=== PATIENT | male | born 1950 | race Caucasian/White ===

== ENCOUNTER 2017-06-16 20:42 | Inpatient (IN) | payer OTHER ==
[~2017-06-16] VITALS: Ht 180.3 cm; Wt 137.0 kg
[2017-06-16 20:49] VITALS: BP 136/65
[2017-06-16] MEDS ORDERED: Sodium Chloride 500ML 500 ML IV ONE (20:57)
[2017-06-16] MEDS ORDERED: Ipratropium 0.02% Inh Soln 2.5ml UD HHN ONE (21:00)
[2017-06-16] MEDS ORDERED: Albuterol ud Inhalation HHN ONE (21:00)
[2017-06-16] MEDS ORDERED: Promethazine/Codeine 5ml UD ORAL ONE (21:30)
[2017-06-16 21:53] LABS: BASOPHILS % (AUTO) 0.8 % (0.0-2.0); EOSINOPHILS % (AUTO) 0.6 % (0.0-3.0); LYMPHOCYTES % (AUTO) 11.6 % (20.0-45.0); MEAN CORPUSCULAR HEMOGLOBIN 31.4 PG (27.0-31.0); MEAN CORPUSCULAR HGB CONC 31.9 G/DL (32.0-36.0); MEAN CORPUSCULAR VOLUME 98 FL (80-99); MEAN PLATELET VOLUME 5.4 FL (6.5-10.1); PLATELET COUNT 170 K/UL (150-450); RED BLOOD COUNT 4.42 M/UL (4.70-6.10); RED CELL DISTRIBUTION WIDTH 11.5 % (11.6-14.8); WHITE BLOOD COUNT 9.2 K/UL (4.8-10.8)
[2017-06-16 21:58] LABS: APPEARANCE,URINE CLEAR; KETONES,URINE 1+ (NEGATIVE); LEUKOCYTE ESTERASE ,URINE 1+ (NEGATIVE); NITRITE,URINE NEGATIVE (NEGATIVE); PH,URINE 5 (4.5-8.0); PROTEIN,URINE 2+ (NEGATIVE); UROBILINOGEN,URINE 1 MG/DL (0.0-1.0)
[2017-06-16 22:03] LABS: BACTERIA,URINE FEW /HPF; RBC,URINE 0-2 /HPF (0 - 0); SQUAMOUS EPITHELIAL CELL,UR OCCASIONAL /LPF (NONE/OCC); WBC,URINE 0-2 /HPF (0 - 0)
[2017-06-16 22:05] LABS: ANION GAP 10 mmol/L (5-15); CALCIUM 8.5 MG/DL (8.5-10.1); CARBON DIOXIDE 23 MMOL/L (21-32); CHLORIDE 103 MMOL/L (98-107); CREATININE 1.2 MG/DL (0.55-1.30); GLOMERULAR FILTRATION RATE > 60 mL/min (>60); POTASSIUM 4.6 MMOL/L (3.5-5.1); SODIUM 136 MMOL/L (136-145)
[2017-06-16 22:20] LABS: ALANINE AMINOTRANSFERASE 45 U/L (12-78); ALBUMIN/GLOBULIN RATIO 0.9 (1.0-2.7); ASPARTATE AMINO TRANSFERASE 38 U/L (15-37); CKMB 3.8 NG/ML (0.0-3.6); TOTAL PROTEIN 6.1 G/DL (6.4-8.2)
[2017-06-16 22:49] VITALS: BP 125/71
--- NOTE | 2017-06-16 23:40 | Emergency Room Report ---
History of Present Illness General Chief Complaint: Dyspnea/Respdistress Source: Family Member Present Illness HPI 66-year-old male presents ED for shortness of breath. Started approximately 30 minutes ago. Patient presents with shortness of breath, coughing. Also complaining of some chest pain, sharp, 5 at 10, midsternal, nonradiating. States cough is dry. Denies fevers or chills. Denies sick contacts or recent travel. No other aggravating or relieving factors. Denies any other associated symptoms Allergies: Coded Allergies: No Known Allergies (Unverified , 06/16/17) Patient History Past Medical History: DM, HTN Past Surgical History: none Pertinent Family History: none Social History: Denies: smoking, alcohol use, drug use Immunizations: UTD Reviewed Nursing Documentation: PMH: Agreed, PSxH: Agreed Nursing Documentation-PMH Past Medical History: No History, Except For Hx Hypertension: Yes Hx Diabetes: Yes Review of Systems All Other Systems: negative except mentioned in HPI Physical Exam Vital Signs Date Time Temp Pulse Resp B/P (MAP) Pulse Ox O2 Delivery O2 Flow Rate FiO2 06/16/17 20:45 99.0 110 22 136/65 99 Room Air 06/16/17 21:08 2.0 24 Sp02 EP Interpretation: reviewed, normal General Appearance: no apparent distress, alert, GCS 15, non-toxic Head: normocephalic, atraumatic Eyes: bilateral eye normal inspection, bilateral eye PERRL ENT: hearing grossly normal, normal pharynx, no angioedema, normal voice Neck: full range of motion, supple/symm/no masses Respiratory: chest non-tender, decreased breath sounds, crackles, speaking full sentences Cardiovascular #1: regular rate, rhythm, no edema Cardiovascular #2: 2+ carotid (R), 2+ carotid (L), 2+ radial (R), 2+ radial (L) , 2+ dorsalis pedis (R), 2+ dorsalis pedis (L) Gastrointestinal: normal bowel sounds, non tender, soft, non-distended, no guarding, no rebound Rectal: deferred Genitourinary: normal inspection, no CVA tenderness Musculoskeletal: back normal, gait/station normal, normal range of motion, non- tender Neurologic: alert, oriented x3, responsive, motor strength/tone normal, sensory intact, speech normal Psychiatric: judgement/insight normal, memory normal, mood/affect normal, no suicidal/homicidal ideation Reflexes: 3+ bicep (R), 3+ bicep (L), 3+ tricep (R), 3+ tricep (L), 3+ knee (R) , 3+ knee (L) Skin: normal color, no rash, warm/dry, well hydrated Lymphatic: no adenopathy Medical Decision Making Diagnostic Impression: Primary Impression: Respiratory distress Additional Impression: CHF (congestive heart failure) Qualified Codes: I50.9 - Heart failure, unspecified ER Course Hospital Course 66-year-old male presents ED complaining of shortness of breath, cough Differential diagnoses include: OH/unstable angina, contusion, muscle strain, PTX, rib fracture Clinical course Patient placed on stretcher. on library monitor. After initial history and physical I ordered labs, EKG, chest x-ray, nebs labs reviewed- no leukocytosis, hemoglobin/hematocrit stable, electrolytes ok, troponins negative, BNP elevated, flu negative EKG - sinus tachycardia, no acute ischemic changes interpreted by me Chest x-ray- cardiomegaly. bilateral effusion asa given. abx given. Case discussed with Dr. Merritt and he agreed to accept the patient to his service for further care and support I. I feel this is a highly complex case requiring extensive working including EKG/Rhythm strip, Xray/CT/US, Blood/urine lab work, repeat exams while in ED, and administration of strong opiates/narcotics for pain control, admission to hospital or close patient follow up. Diagnosis - CHF exacerbation, respiratory distress admitted to telemetry in serious condition Labs Test 06/16/17 21:25 White Blood Count 9.2 K/UL (4.8-10.8) Red Blood Count 4.42 M/UL (4.70-6.10) Hemoglobin 13.9 G/DL (14.2-18.0) Hematocrit 43.4 % (42.0-52.0) Mean Corpuscular Volume 98 FL (80-99) Mean Corpuscular Hemoglobin 31.4 PG (27.0-31.0) Mean Corpuscular Hemoglobin Concent 31.9 G/DL (32.0-36.0) Red Cell Distribution Width 11.5 % (11.6-14.8) Platelet Count 170 K/UL (150-450) Mean Platelet Volume 5.4 FL (6.5-10.1) Neutrophils (%) (Auto) 81.0 % (45.0-75.0) Lymphocytes (%) (Auto) 11.6 % (20.0-45.0) Monocytes (%) (Auto) 6.0 % (1.0-10.0) Eosinophils (%) (Auto) 0.6 % (0.0-3.0) Basophils (%) (Auto) 0.8 % (0.0-2.0) Urine Color Yellow Urine Appearance Clear Urine pH 5 (4.5-8.0) Urine Specific [place] 1.025 (1.005-1.035) Urine Protein 2+ (NEGATIVE) Urine Glucose (UA) 4+ (NEGATIVE) Urine Ketones 1+ (NEGATIVE) Urine Occult Blood 1+ (NEGATIVE) Urine Nitrite Negative (NEGATIVE) Urine Bilirubin Negative (NEGATIVE) Urine Urobilinogen 1 MG/DL (0.0-1.0) Urine Leukocyte Esterase 1+ (NEGATIVE) Urine RBC 0-2 /HPF (0 - 0) Urine WBC 0-2 /HPF (0 - 0) Urine Squamous Epithelial Cells Occasional /LPF Urine Bacteria Few /HPF (NONE) Sodium Level 136 MMOL/L (136-145) Potassium Level 4.6 MMOL/L (3.5-5.1) Chloride Level 103 MMOL/L (98-107) Carbon Dioxide Level 23 MMOL/L (21-32) Anion Gap 10 mmol/L (5-15) Blood Urea Nitrogen 16 mg/dL (7-18) Creatinine 1.2 MG/DL (0.55-1.30) Estimat Glomerular Filtration Rate > 60 mL/min (>60) Glucose Level 254 MG/DL (74-106) Calcium Level 8.5 MG/DL (8.5-10.1) Total Bilirubin 0.3 MG/DL (0.2-1.0) Aspartate Amino Transf (AST/SGOT) 38 U/L (15-37) Alanine Aminotransferase (ALT/SGPT) 45 U/L (12-78) Alkaline Phosphatase 51 U/L (46-116) Total Creatine Kinase 144 U/L (26-308) Creatine Kinase MB 3.8 NG/ML (0.0-3.6) Creatine Kinase MB Relative Index 2.6 Troponin I 0.000 ng/mL (0.000-0.056) Pro-B-Type Natriuretic Peptide 243 pg/mL (0-125) Total Protein 6.1 G/DL (6.4-8.2) Albumin 2.9 G/DL (3.4-5.0) Globulin 3.2 g/dL Albumin/Globulin Ratio 0.9 (1.0-2.7) EKG Diagnostic Results Rate: tachycardiac Rhythm: NSR ST Segments: no acute changes ASA given to the pt in ED: Yes Rhythm Strip Diag. Results EP Interpretation: yes Rhythm: NSR, no PVC's, no ectopy Chest X-Ray Diagnostic Results Chest X-Ray Diagnostic Results : Chest X-Ray Ordered: Yes # of Views/Limited/Complete: 1 View EP Interpretation: Yes Interpretation: no consolidation, no pneumothorax, no acute cardiopulmonary disease, other - bilateral effusion. cardiomegaly Impression: Other - chf Electronically Signed by: Electronically signed by Baljeet Eric MD Last Vital Signs Date Time Temp Pulse Resp B/P (MAP) Pulse Ox O2 Delivery O2 Flow Rate FiO2 06/16/17 21:23 113 26 95 Nasal Cannula 2.0 28 06/16/17 20:49 99.0 136/65 Status: improved Disposition: ADMITTED INPATIENT Condition: Serious Referrals: [facility],REFERRING (PCP) BALJEET ERIC M.D. Jun 16, 2017 23:40
[2017-06-17] VITALS (7 sets, daily range): BP systolic 105–133; BP diastolic 57–79
[2017-06-17] MEDS ORDERED: HUMALOG100 UNIT/4 SUBQ (00:38)
[2017-06-17] MEDS ORDERED: LANTUS SOL100 UNIT/1 SUBQ (00:38)
[2017-06-17] MEDS ORDERED: ASPIRIN-LOW81 MG ORAL (00:38)
[2017-06-17] MEDS ORDERED: LOSARTAN POTASS50 MG ORAL (00:38)
[2017-06-17] MEDS ORDERED: DOXAZOSIN MESYLA2 MG ORAL (00:38)
[2017-06-17] MEDS ORDERED: METFORMIN HCL500 M1 ORAL (00:38)
[2017-06-17] MEDS ORDERED: NORVASC2.5 MG ORAL (00:38)
[2017-06-17] MEDS ORDERED: METOPROLOL SUCC50 MG ORAL (00:38)
[2017-06-17] MEDS ORDERED: ATORVASTATIN CA10 MG ORAL (00:38)
[2017-06-17] MEDS ORDERED: Albuterol/Ipratropium 3ml neb HHN PRN (03:15)
[2017-06-17] MEDS: NovoLOG Insulin Flexpen SUBQ SCH ×7 (08:00→21:24)
[2017-06-17] MEDS ORDERED: Metoprolol Succinate XL 25mg tab ORAL SCH (09:00)
[2017-06-17] MEDS ORDERED: Metoprolol Succinate XL 50mg tab ORAL SCH (09:00)
[2017-06-17] MEDS ORDERED: Losartan 50mg tab ORAL SCH (09:00)
[2017-06-17] MEDS ORDERED: Enoxaparin 40mg Inj SUBQ SCH (09:00)
[2017-06-17] MEDS ORDERED: Losartan 25mg tab ORAL SCH (09:00)
[2017-06-17] MEDS: Aspirin EC 81mg tab ORAL SCH (09:03)
[2017-06-17] MEDS: Doxazosin 4mg tab ORAL SCH (09:04)
[2017-06-17] MEDS: metFORMIN 500mg tab ORAL SCH ×2 (09:05→17:18)
--- NOTE | 2017-06-17 09:06 | History & Physical ---
History and Physical History & Physicial seen and examined. Dict completed Matilde Merritt MD Jun 17, 2017 09:06
--- NOTE | 2017-06-17 09:40 | Diagnostic Imaging Report ---
Indication: SOB Technique: XRAY CHEST 1 V Comparison: None. Findings: The heart is enlarged. The lungs are clear. No pleural fluid. The bones are unremarkable. Impression: Cardiomegaly. Otherwise normal.
[2017-06-17] MEDS ORDERED: Tubing IV Secondary IV ONE (16:20)
[2017-06-17] MEDS ORDERED: NS 500ML ONE (16:20)
[2017-06-17] MEDS: Vancomycin 1500mg IVPB SCH (17:18)
--- NOTE | 2017-06-17 19:31 | History and Physical Report ---
DATE OF ADMISSION: 06/17/2017 SOURCE OF INFORMATION: The patient and EMR. HISTORY OF PRESENT ILLNESS: The patient is a pleasant 66-year-old [place] male. The patient is complaining of shortness of breath for at least half an hour before coming to the emergency room. Positive for the chest pain. The pain reported in the precordial area with radiation to the neck. Denies any fever or chills. Denies any cough. Denies any abnormal bleeding. REVIEW OF SYSTEMS: All 12 elements of review of systems are reviewed. Pertinent positive and negatives are reviewed as above. ALLERGIES: NKDA. PAST MEDICAL HISTORY: Diabetes and hypertension. PAST SURGICAL HISTORY: Denies. FAMILY HISTORY: Denies. SOCIAL HISTORY: The patient denies history of illicit drug abuse, smoking, or alcohol abuse. MEDICATIONS: Current hospital medications including, but not limited to Tylenol, aspirin 81, Lipitor 10 mg daily, DuoNeb, Lasix 40 mg IV daily, sliding scale insulin, losartan 25 mg daily, and metformin 500 mg b.i.d. PHYSICAL EXAMINATION: VITAL SIGNS: Blood pressure 130/60, temperature 98.2, pulse oximetry 98% on room air, pulse rate 100-120, and respiratory rate 18-20. HEAD AND NECK: Atraumatic and normocephalic. CHEST: Positive for bronchial breathing sounds in the bases of the lungs. Negative for wheezing. HEART: S1 and S2. Regular rate and rhythm. ABDOMEN: Obese. Limited evaluation. NEUROLOGIC: The patient is awake, alert and oriented x3. MUSCULOSKELETAL: Positive for 2+ pitting edema in both ankles. No gross focal motor deficit. LABORATORY AND DIAGNOSTIC DATA: Labs dated 06/16/2017 shows WBC 9.2, hemoglobin 13.9, and platelet of 170. Sodium 136, potassium 4.6, BUN 16, creatinine 1.0. AST 38. BNP 243. Albumin 2.9. Urinalysis shows 2+ proteinuria. Imaging is still pending. ASSESSMENT: 1. Chest pain possibility of acute coronary syndrome cannot be excluded in this patient with moderate to high risk pretest probability. 2. Exertional shortness of breath. 3. Anemia. 4. Diabetes type 2. 5. Malnourishment. 6. Abnormal LFTs. 7. Gastrointestinal and deep vein thrombosis prophylaxis. PLAN OF CARE: I agree with telemetry admission. Continue with home medications. Cardiology, Dr. Javier has been consulted. Matilde Merritt M.D. DR: JASWANT JOB#: [id number] CC:
[2017-06-17 20:28] LABS: ANION GAP 8 mmol/L (5-15); CALCIUM 8.6 MG/DL (8.5-10.1); CARBON DIOXIDE 26 MMOL/L (21-32); CHLORIDE 101 MMOL/L (98-107); CREATININE 1.3 MG/DL (0.55-1.30); GLOMERULAR FILTRATION RATE 54.9 mL/min (>60); POTASSIUM 4.4 MMOL/L (3.5-5.1); SODIUM 135 MMOL/L (136-145)
[2017-06-17] MEDS: Losartan 25mg tab ORAL SCH (21:13)
[2017-06-17] MEDS: Levemir Flexpen SUBQ SCH (21:21)
[2017-06-17] MEDS: Enoxaparin 100mg Inj SUBQ SCH (23:11)
[2017-06-18 00:35] VITALS: BP 109/52
[2017-06-18 04:22] VITALS: BP 121/70
[2017-06-18] MEDS: Vancomycin 1500mg IVPB SCH ×2 (04:33→15:48)
[2017-06-18] MEDS: NovoLOG Insulin Flexpen SUBQ SCH ×7 (07:00→22:44)
[2017-06-18 08:49] VITALS: BP 127/73
[2017-06-18] MEDS: metFORMIN 500mg tab ORAL SCH ×2 (09:32→17:29)
[2017-06-18] MEDS: Metoprolol Succinate XL 25mg tab ORAL SCH (09:33)
[2017-06-18] MEDS: Aspirin EC 81mg tab ORAL SCH (09:33)
[2017-06-18] MEDS: Losartan 25mg tab ORAL SCH ×2 (09:34→22:41)
[2017-06-18] MEDS: Doxazosin 4mg tab ORAL SCH (09:34)
[2017-06-18] MEDS: Enoxaparin 100mg Inj SUBQ SCH (09:36)
--- NOTE | 2017-06-18 10:16 | Cardiology Report ---
APPROVED REPORT EXAM: Two-dimensional and M-mode echocardiogram with Doppler and color Doppler. INDICATION Congestive Heart Failure M-Mode DIMENSIONS IVSd1.7 (0.7-1.1cm)Left Atrium (MM)3.5 (1.6-4.0cm) LVDd3.5 (3.5-5.6cm)Aortic Root3.9 (2.0-3.7cm) PWd1.7 (0.7-1.1cm)Aortic Cusp Exc.2.0 (1.5-2.0cm) IVSs2.0 cm LVDs2.5 (2.5-4.0cm) PWs1.6 cm Technically difficult study due to poor acoustical windows. Normal left ventricular chamber size, systolic function and wall motion to extent visualized. Left ventricular ejection fraction estimated to be 55-60 %. Mild left ventricular hypertrophy. No evidence of pericardial effusion. All other cardiac chamber sizes are within normal limits. Focal aortic valve sclerosis with adequate cusp excursion. Thickened mitral valve leaflets with normal excursion. Mitral annulus and aortic root calcification. Pulmonic valve not well visualized. Normal tricuspid valve structure. Subcostal views are not obtainable. A color flow and spectral Doppler study was performed and revealed: No aortic regurgitation. Trace mitral regurgitation. Mitral diastolic velocities suggest reduced left ventricular relaxation c/w mild LV diastolic dysfunction (Grade I ). Trace tricuspid regurgitation. Tricuspid systolic velocities suggests peak right ventricular systolic pressure of 18 mmHg No Pulmonic regurgitation present.
--- NOTE | 2017-06-18 10:18 | Consultation ---
LUZ MARINA BRISENO M.D. Jun 18, 2017 10:18
--- NOTE | 2017-06-18 10:55 | General Progress Note ---
Assessment/Plan Status: stable Assessment/Plan 1. Chest pain possibility of acute coronary syndrome cannot be excluded in this patient with moderate to high risk pretest probability. 2. Exertional shortness of breath. 3. Anemia. 4. Diabetes type 2. 5. Malnourishment. 6. Abnormal LFTs. 7. Gastrointestinal and deep vein thrombosis prophylaxis. 8. Afib: New reported incidence Start Lovenox ok to empirical antibiotic regiment Cardiology Dr Javier is consulted possible dc tomorrow Subjective ROS Limited/Unobtainable: No Allergies: Coded Allergies: No Known Allergies (Unverified , 06/16/17) Objective Last 24 Hour Vital Signs Date Time Temp Pulse Resp B/P (MAP) Pulse Ox O2 Delivery O2 Flow Rate FiO2 06/18/17 09:34 127/73 06/18/17 09:33 88 127/73 06/18/17 08:49 97.2 88 18 127/73 93 06/18/17 04:22 98.8 88 18 121/70 93 Nasal Cannula 06/18/17 04:00 76 06/18/17 00:35 96.4 84 18 109/52 93 Nasal Cannula 06/18/17 00:00 79 06/17/17 21:13 127/79 06/17/17 20:28 97.7 85 20 127/79 95 Nasal Cannula 06/17/17 20:00 85 06/17/17 19:00 94 Nasal Cannula 2.0 28 06/17/17 19:00 Nasal Cannula 2.0 28 06/17/17 16:00 97.6 71 20 125/69 94 06/17/17 16:00 103 06/17/17 12:00 97.5 91 20 105/57 95 06/17/17 12:00 88 Intake and Output 06/18/17 06/19/17 19:00 07:00 Intake Total 120 ml Balance 120 ml Intake Oral 120 ml # Voids 1 Laboratory Tests 06/17/17 19:10: Sodium Level 135L, Potassium Level 4.4, Chloride Level 101, Carbon Dioxide Level 26, Anion Gap 8, Blood Urea Nitrogen 26H, Creatinine 1.3, Estimat Glomerular Filtration Rate 54.9, Glucose Level 308H, Calcium Level 8.6 06/17/17 19:30: Troponin I 0.000 06/18/17 06:50: Troponin I < 0.017, Erythrocyte Sedimentation Rate 25H, C-Reactive Protein, Quantitative 17.3H Height (Feet): 5 Height (Inches): 11.00 Weight (Pounds): 310 General Appearance: no apparent distress EENT: PERRL/EOMI Neck: supple Cardiovascular: normal rate Respiratory/Chest: lungs clear Abdomen: soft Extremities: non-tender Neurologic: sports equipment racker II-XII grossly normal Matilde Merritt MD Jun 18, 2017 10:54
[2017-06-18 11:47] VITALS: BP 111/67
--- NOTE | 2017-06-18 13:12 | Cardiology Progress Note ---
Assessment/Plan Assessment/Plan The patient is seen and examined, full consult note will be dictated soon. Objective Last 24 Hour Vital Signs Date Time Temp Pulse Resp B/P (MAP) Pulse Ox O2 Delivery O2 Flow Rate FiO2 06/18/17 11:47 97.2 96 20 111/67 95 06/18/17 09:34 127/73 06/18/17 09:33 88 127/73 06/18/17 08:49 97.2 88 18 127/73 93 06/18/17 04:22 98.8 88 18 121/70 93 Nasal Cannula 06/18/17 04:00 76 06/18/17 00:35 96.4 84 18 109/52 93 Nasal Cannula 06/18/17 00:00 79 06/17/17 21:13 127/79 06/17/17 20:28 97.7 85 20 127/79 95 Nasal Cannula 06/17/17 20:00 85 06/17/17 19:00 94 Nasal Cannula 2.0 28 06/17/17 19:00 Nasal Cannula 2.0 28 06/17/17 16:00 97.6 71 20 125/69 94 06/17/17 16:00 103 Intake and Output 06/18/17 06/19/17 19:00 07:00 Intake Total 120 ml Balance 120 ml Intake Oral 120 ml # Voids 1 Laboratory Tests Test 06/17/17 19:10 06/17/17 19:30 06/18/17 06:50 06/18/17 11:50 Sodium Level 135 MMOL/L (136-145) L Potassium Level 4.4 MMOL/L (3.5-5.1) Chloride Level 101 MMOL/L (98-107) Carbon Dioxide Level 26 MMOL/L (21-32) Anion Gap 8 mmol/L (5-15) Blood Urea Nitrogen 26 mg/dL (7-18) H Creatinine 1.3 MG/DL (0.55-1.30) Estimat Glomerular Filtration Rate 54.9 mL/min (>60) Glucose Level 308 MG/DL (74-106) H Calcium Level 8.6 MG/DL (8.5-10.1) Troponin I 0.000 ng/mL (0.000-0.056) < 0.017 ng/mL (0.000-0.056) 0.000 ng/mL (0.000-0.056) Erythrocyte Sedimentation Rate 25 MM/HR (0-20) H C-Reactive Protein, Quantitative 17.3 mg/dL (0.00-0.90) H Microbiology Date/Time Source Procedure Growth Status 06/16/17 21:40 Blood Blood Culture - Preliminary Streptococcus Species Resulted 06/16/17 21:25 Blood Blood Culture - Preliminary Streptococcus Species Resulted 06/16/17 21:25 Nasal Nares Influenza Types A,B Antigen ([facility]) - Final Complete NAYA MANZO Jun 18, 2017 13:12
--- NOTE | 2017-06-18 14:02 | Consultation ---
Consult Note Consult Note [facility] # [id number] LUZ MARINA BRISENO M.D. Jun 18, 2017 14:01
[2017-06-18] MEDS: Xarelto 10mg tab ORAL SCH (14:08)
[2017-06-18 15:40] VITALS: BP 129/67
[2017-06-18 15:56] LABS: ANION GAP 5 mmol/L (5-15); CALCIUM 8.4 MG/DL (8.5-10.1); CARBON DIOXIDE 32 MMOL/L (21-32); CHLORIDE 101 MMOL/L (98-107); CREATININE 1.3 MG/DL (0.55-1.30); GLOMERULAR FILTRATION RATE 54.9 mL/min (>60); POTASSIUM 4.7 MMOL/L (3.5-5.1); SODIUM 138 MMOL/L (136-145)
--- NOTE | 2017-06-18 18:56 | Cardiology Report ---
APPROVED REPORT EXAM: Two-dimensional and M-mode echocardiogram with Doppler and color Doppler. INDICATION Shortness of breath/ chest pain M-Mode DIMENSIONS IVSd2.2 (0.7-1.1cm)Left Atrium (MM)5.5 (1.6-4.0cm) LVDd5.3 (3.5-5.6cm)Aortic Root3.0 (2.0-3.7cm) PWd1.0 (0.7-1.1cm)Aortic Cusp Exc.1.5 (1.5-2.0cm) LVDs3.4 (2.5-4.0cm) PWs1.8 cm Other Information position. Normal left ventricular chamber size. Mild hypokinesis of posterior wall, otherwise all other segments seem to have normal wall motion. Left ventricular ejection fraction estimated to be 50%. Study quality precludes accurate assessment of regional wall motion. Moderate left ventricular hypertrophy. No evidence of pericardial effusion. Left atrial size at upper limits of normal. Right cardiac chamber sizes are within normal limits. Focal aortic valve sclerosis with adequate cusp excursion. Thickened mitral valve leaflets with normal excursion. Mitral annulus and aortic root calcification. Pulmonic valve not well visualized. Normal tricuspid valve structure. Subcostal views were not obtainable. A color flow and spectral Doppler study was performed and revealed: Trace aortic insufficiency. Mild mitral regurgitation. Cannot determine left ventricular diastolic function by mitral diastolic velocities due to possible atrial fibrillation. Trace tricuspid regurgitation. Tricuspid systolic velocities suggests peak right ventricular systolic pressure of 15 mmHg. No pulmonic regurgitation present.
[2017-06-18 20:00] VITALS: BP 127/67
--- NOTE | 2017-06-18 21:45 | Consultation ---
DATE OF CONSULTATION: 06/18/2017 CARDIOLOGY CONSULTATION CONSULTING PHYSICIAN: Silvio Javier M.D. REFERRING PHYSICIAN: Matilde Merritt M.D. REASON FOR CONSULTATION: Management of shortness of breath. HISTORY OF PRESENT ILLNESS: The patient is a very pleasant, 66-year-old, Hungarian-speaking gentleman, who presents to the hospital with shortness of breath that was started approximately 30 minutes prior to arrival to the hospital. He had associated coughing and some pleuritic chest pain. On initial arrival to the hospital, his blood pressure was 136/65. He had low-grade fever with temperature 99.0 degrees Fahrenheit and heart rate was 110. A 12-lead electrocardiogram showed atrial fibrillation with rapid ventricular response. The patient had a chest x-ray, which showed presence of cardiomegaly, but no evidence of pulmonary edema. His risk factors are coronary artery disease including hypertension and diabetes mellitus. His first troponin-I level was negative. The patient was admitted to telemetry for further evaluation and management. PAST MEDICAL HISTORY: Diabetes mellitus, hypertension, and morbid obesity. PAST SURGICAL HISTORY: None. MEDICATIONS: List of medication includes, 1. Aspirin 81 mg p.o. daily. 2. Norvasc 2.5 mg p.o. daily. 3. Lipitor 10 mg p.o. nightly. 4. Doxazosin 2 mg p.o. daily. 5. Lantus insulin 50 units subcutaneous at bedtime. 6. Humalog insulin 18 units subcutaneous t.i.d. 7. Losartan 50 mg p.o. twice daily. 8. Metformin 500 mg twice daily. 9. Metoprolol 50 mg p.o. daily. ALLERGIES: No known drug allergies. SOCIAL HISTORY: Denies any tobacco, alcohol, or illicit drug use. REVIEW OF SYSTEMS: A 12-system review done essentially negative except what mentioned in the history of present illness. PHYSICAL EXAMINATION: VITAL SIGNS: Blood pressure at the time of arrival to the hospital was 106/65 mmHg, pulse of 110, respirations of 22, temperature 99.0 degrees Fahrenheit, and O2 saturation of 99% on room air. GENERAL: The patient is morbidly obese, 66-year-old gentleman, in no apparent respiratory distress. Awake and alert x4. HEENT: Atraumatic and normocephalic. Anicteric. Pupils are equal, round, and reactive to light and accommodation. Extraocular muscles intact. NECK: JVP is less than 5 cm. No carotid bruit. Carotid upstrokes 2+ bilaterally. CVS: Normal S1 and S2. Irregularly irregular rhythm. Tachycardic. No murmurs, gallops, or rubs. LUNGS: Clear to auscultation bilaterally. ABDOMEN: Soft, nontender, and nondistended. No hepatosplenomegaly. Positive bowel sounds. EXTREMITIES: There is 1 to 2+ bilateral lower extremity edema, in particular around the ankles. LABORATORY FINDINGS: Sodium is 136, potassium is 4.6, chloride 103, bicarbonate 23, BUN of 16, creatinine 1.2, glucose is 254, and calcium is 8.5. Troponin-I x4 negative. ProBNP was 243. A 12-lead electrocardiogram significant for atrial fibrillation, heart rate of [address] and T-wave abnormalities. Chest x-ray shows cardiomegaly with no pulmonary edema. ASSESSMENT AND PLAN: The patient is a very unfortunate, 66-year-old gentleman, seen in Cardiology consultation at the request of Dr. Merritt. 1. Most likely permanent atrial fibrillation that is rate controlled with metoprolol use as an outpatient. The patient's CHADS-VASc score at least 3 given diabetes mellitus, hypertension, and age of 66. He requires to be started on oral anticoagulant therapy. His Lovenox will be replaced by Xarelto once daily. His creatinine is 1.2, requiring 20 mg Xarelto once daily. 2. Dyspnea could be due to deconditioning, might be a transient mild heart failure. Slight elevation of BNP, most likely due to atrial fibrillation, although the patient with atrial fibrillation tends to have more prevalence of heart failure. This patient does not show any evidence of systolic and diastolic heart failure. A 2D echocardiography shows left ventricular ejection fraction of about 55% to 60%. Diastolic data is not compatible with elevated intracardiac filling pressures. I would switch the furosemide to 20 mg oral daily for lower extremity edema to prevent renal dysfunction. 3. Morbid obesity. 4. Multiple risk factors for coronary artery disease. A 12-lead electrocardiogram does not show any ischemic changes. Chest pain on arrival to the hospital is not ischemic in origin. The patient may benefit from outpatient stress test if the chest pain is recurrent, currently chest pain free. Active myocardial infarction is ruled out. I would like to thank, Dr. Merritt, for the courtesy of this consultation. Silvio Javier M.D. DR: Monica JOB#: [id number] CC:
[2017-06-18] MEDS: Levemir Flexpen SUBQ SCH (22:47)
[2017-06-19] VITALS (7 sets, daily range): BP systolic 99–147; BP diastolic 50–86
--- NOTE | 2017-06-19 04:00 | Consultation ---
DATE OF CONSULTATION: 06/18/2017 INFECTIOUS DISEASE CONSULTATION CONSULTING PHYSICIAN: Brandon Powers M.D. REQUESTING PHYSICIAN: Matilde Merritt M.D. REASON FOR CONSULTATION: Evaluation of the patient for bacteremia. HISTORY OF PRESENT ILLNESS: The patient is a 66-year-old male with multiple medical problems as listed below, who was admitted to this medical center for shortness of breath. The patient's blood culture is growing gram positive cocci, has been started on IV vancomycin. Infectious Disease consultation has been requested for further evaluation of the patient and antibiotic management. PAST MEDICAL HISTORY: 1. Diabetes. 2. Hypertension. 3. Hyperlipidemia. PAST SURGICAL HISTORY: None. MEDICATIONS: IV vancomycin. ALLERGIES: No known drug allergies. SOCIAL HISTORY: No history of alcohol or drug abuse. FAMILY HISTORY: Not contributing. REVIEW OF SYSTEMS: HEENT: No recent change in vision or hearing. No history of chills. PULMONARY: The patient has shortness of breath. No significant cough. CARDIOVASCULAR: No chest pain or palpitation. GASTROINTESTINAL/ABDOMEN: No nausea or vomiting. GENITOURINARY: No dysuria. PHYSICAL EXAMINATION: VITAL SIGNS: Temperature 97, blood pressure 111/57, pulse 86, and respiratory rate 18. HEENT: No pale conjunctivae. No icterus. NECK: No lymphadenopathy. CHEST: Mild crackles at bases of both lungs. HEART: S1 and S2. ABDOMEN: Soft and obese. EXTREMITIES: No cyanosis. NEUROLOGIC: Awake and alert. LABORATORY DATA: White blood cells 9, hemoglobin 13, and platelets 170. UA unremarkable. BUN 26 and creatinine 1.3. Liver function tests unremarkable. Blood culture is growing strep 2/2. Echo, no aortic regurgitation, trace mitral regurgitation. Chest x-ray, cardiomegaly. ASSESSMENT: 1. The patient is a 66-year-old male with two sets of blood culture positive for streptococcus, source is unknown, rule out endocarditis, also this could be a contaminant. 2. Shortness of breath due to congestive heart failure. 3. Afebrile. 4. Normal white blood cells. PLAN: 1. We will continue the patient on IV vancomycin. 2. Monitor CBC. 3. Monitor BMP. 4. Monitor repeat blood cultures. 5. Monitor vital signs. 6. We will follow Cardiology recommendations. 7. Based on the patient's clinical course and labs, we will do further recommendations. Thank you, Dr. Merritt, for allowing me to participate in the care of this patient. I will follow the patient with you during this hospitalization. Brandon Powers M.D. DR: DELVIN JOB#: [id number] CC:
[2017-06-19] MEDS: Vancomycin 1250mg/D5W 250ml IVPB SCH ×2 (05:00→12:51)
[2017-06-19] MEDS: NovoLOG Insulin Flexpen SUBQ SCH ×7 (06:32→21:43)
[2017-06-19] MEDS: Xarelto 10mg tab ORAL SCH (09:05)
[2017-06-19] MEDS: metFORMIN 500mg tab ORAL SCH ×2 (09:06→17:31)
[2017-06-19] MEDS: Doxazosin 4mg tab ORAL SCH (09:07)
[2017-06-19] MEDS: Losartan 25mg tab ORAL SCH ×2 (09:09→21:40)
[2017-06-19] MEDS: Metoprolol Succinate XL 25mg tab ORAL SCH (09:09)
[2017-06-19] MEDS: Aspirin EC 81mg tab ORAL SCH (09:12)
[2017-06-19] MEDS ORDERED: FUROSEMIDE20 M1 ORAL (12:05)
[2017-06-19] MEDS ORDERED: XARELTO10 MG ORAL (12:06)
--- NOTE | 2017-06-19 14:47 | Infectious Diseases Prog Note ---
Assessment/Plan Assessment/Plan ASSESSMENT: The patient is a 66-year-old male with +ve blood culture: streptococcus Grp B ? source is unknown, transient bacteremia vs contaminant TTE : neg for SBE Shortness of breath due to congestive heart failure. Febrile. Normal white blood cells Diabetes. Hypertension. Hyperlipidemia PLAN: on IV vancomycin d# 4 , change to Ampicillin IV, upon DC will change to Amoxilxllin x 10 d repeat blood Cx in 2 wks Monitor CBC Monitor BMP. Monitor repeat blood cultures. Monitor vital signs Cardiology following need to monitor repeat blood Cx , possible DC in AM ( [facility] PCP ) Subjective Constitutional: Denies: no symptoms, fever, chills, fatigue, anorexia, drenching sweats, other Allergies: Coded Allergies: No Known Allergies (Unverified , 06/16/17) Objective Vital Signs Last 24 Hour Vital Signs Date Time Temp Pulse Resp B/P (MAP) Pulse Ox O2 Delivery O2 Flow Rate FiO2 06/19/17 11:40 96.8 83 20 122/66 95 06/19/17 09:46 Room Air 06/19/17 09:46 97 Room Air 06/19/17 09:09 81 129/64 06/19/17 09:09 129/64 06/19/17 08:35 96.4 91 20 129/64 93 06/19/17 08:00 76 06/19/17 04:00 84 06/19/17 04:00 97.7 65 20 99/50 94 Room Air 06/19/17 00:00 97.7 78 20 123/84 95 Room Air 06/19/17 00:00 85 06/18/17 22:41 127/67 06/18/17 20:00 86 06/18/17 20:00 97.3 62 20 127/67 93 Room Air 06/18/17 18:51 92 Room Air 21 06/18/17 18:51 Room Air 21 06/18/17 18:51 80 18 Room Air 21 06/18/17 16:35 Room Air 21 06/18/17 16:35 99 Nasal Cannula 06/18/17 16:00 78 06/18/17 15:40 97.0 74 20 129/67 95 Height (Feet): 5 Height (Inches): 11.00 Weight (Pounds): 302 HEENT: mucous membranes moist Respiratory/Chest: no respiratory distress Cardiovascular: regularly irregular Abdomen: non distended Microbiology Date/Time Source Procedure Growth Status 06/17/17 19:10 Blood Blood Culture - Preliminary NO GROWTH AFTER 24 HOURS Resulted 06/17/17 19:00 Blood Blood Culture - Preliminary NO GROWTH AFTER 24 HOURS Resulted 06/16/17 21:40 Blood Blood Culture - Final Strep Agalactiae Group B Complete 06/16/17 21:25 Blood Blood Culture - Final Strep Agalactiae Group B Complete 06/16/17 21:25 Nasal Nares Influenza Types A,B Antigen ([facility]) - Final Complete Laboratory Tests Test 06/18/17 14:50 Sodium Level 138 MMOL/L (136-145) Potassium Level 4.7 MMOL/L (3.5-5.1) Chloride Level 101 MMOL/L (98-107) Carbon Dioxide Level 32 MMOL/L (21-32) Anion Gap 5 mmol/L (5-15) Blood Urea Nitrogen 20 mg/dL (7-18) H Creatinine 1.3 MG/DL (0.55-1.30) Estimat Glomerular Filtration Rate 54.9 mL/min (>60) Glucose Level 239 MG/DL (74-106) H Calcium Level 8.4 MG/DL (8.5-10.1) L Vancomycin Level Trough 9.8 ug/mL (5.0-12.0) Current Medications Medications (Trade) Dose Ordered Sig/Jose Route PRN Reason Start Time Stop Time Status Last Admin Dose Admin Acetaminophen (Tylenol) 650 mg Q6H PRN ORAL Mild Pain/Temp > 100.5 06/17/17 03:15 07/17/17 03:14 Albuterol/ Ipratropium (Albuterol/ Ipratropium) 3 ml Q4H PRN HHN Shortness of Breath 06/17/17 03:15 06/22/17 03:14 Aspirin (Ecotrin) 81 mg DAILY ORAL 06/17/17 09:00 07/17/17 08:59 06/19/17 09:12 Atorvastatin Calcium (Lipitor) 10 mg BEDTIME ORAL 06/17/17 21:00 07/17/17 20:59 06/18/17 22:41 Dextrose (Dextrose 50%) STAT PRN IV Hypoglycemia 06/17/17 03:15 07/17/17 03:14 Doxazosin Mesylate (Cardura) 2 mg DAILY ORAL 06/17/17 09:00 07/17/17 08:59 06/19/17 09:07 Furosemide (Lasix) 20 mg DAILY ORAL 06/19/17 09:00 07/19/17 08:59 06/19/17 09:05 Insulin Aspart (NovoLOG) BEFORE MEALS AND HS SUBQ 06/17/17 06:30 07/17/17 06:29 06/19/17 11:44 Insulin Aspart (NovoLOG) 12 units TIAC SUBQ 06/17/17 06:30 07/17/17 06:29 06/19/17 11:45 Insulin Detemir (Levemir) 40 units BEDTIME SUBQ 06/17/17 21:00 07/17/17 20:59 06/18/17 22:47 Losartan Potassium (Cozaar) 25 mg Q12HR ORAL 06/17/17 21:00 07/17/17 20:59 06/19/17 09:09 Metformin HCl (Glucophage) 500 mg TWICE A DAY ORAL 06/17/17 09:00 07/17/17 08:59 06/19/17 09:06 Metoprolol Succinate (Toprol XL) 25 mg DAILY ORAL 06/18/17 09:00 07/18/17 08:59 06/19/17 09:09 Ondansetron HCl (Zofran) 4 mg Q6H PRN IVP Nausea & Vomiting 06/17/17 03:15 07/17/17 03:14 Rivaroxaban (Xarelto) 20 mg DAILY ORAL 06/18/17 14:00 07/18/17 13:59 06/19/17 09:05 Vancomycin HCl (Vanco rx to dose) 1 ea DAILY PRN MISC Per rx protocol 06/17/17 15:00 07/17/17 14:59 Vancomycin HCl/ Dextrose 250 ml @ 166.667 mls/hr Q8HR@0400,1200,2000 IVPB 06/19/17 04:00 06/24/17 03:59 06/19/17 12:51 LUZ MARINA BRISENO M.D. Jun 19, 2017 14:47
[2017-06-19] MEDS: Ampicillin 1 GM in NS 55 ML IVPB SCH ×2 (18:58→22:00)
[2017-06-19] MEDS: Levemir Flexpen SUBQ SCH (21:42)
[2017-06-19] MEDS ORDERED: Albuterol/Ipratropium 3ml neb HHN PRN (23:15)
[2017-06-20] VITALS: BP 107/58
[2017-06-20 04:00] VITALS: BP 133/70
[2017-06-20] MEDS: Ampicillin 1 GM in NS 55 ML IVPB SCH ×3 (04:00→09:28)
[2017-06-20 05:26] LABS: BASOPHILS % (AUTO) 1.2 % (0.0-2.0); EOSINOPHILS % (AUTO) 1.7 % (0.0-3.0); LYMPHOCYTES % (AUTO) 31.8 % (20.0-45.0); MEAN CORPUSCULAR HGB CONC 33.5 G/DL (32.0-36.0); MEAN CORPUSCULAR VOLUME 96 FL (80-99); MEAN PLATELET VOLUME 5.7 FL (6.5-10.1); MONOCYTES % (AUTO) 14.5 % (1.0-10.0); NEUTROPHILS % (AUTO) 50.8 % (45.0-75.0); PLATELET COUNT 190 K/UL (150-450); RED BLOOD COUNT 4.42 M/UL (4.70-6.10); RED CELL DISTRIBUTION WIDTH 11.3 % (11.6-14.8); WHITE BLOOD COUNT 4.5 K/UL (4.8-10.8)
[2017-06-20 06:03] LABS: ANION GAP 4 mmol/L (5-15); CALCIUM 8.6 MG/DL (8.5-10.1); CARBON DIOXIDE 31 MMOL/L (21-32); CHLORIDE 104 MMOL/L (98-107); CREATININE 1.2 MG/DL (0.55-1.30); CRP QUANT 4.2 mg/dL (0.00-0.90); GLOMERULAR FILTRATION RATE > 60 mL/min (>60); POTASSIUM 4.2 MMOL/L (3.5-5.1); SODIUM 139 MMOL/L (136-145)
[2017-06-20] MEDS: NovoLOG Insulin Flexpen SUBQ SCH ×4 (07:08→11:34)
[2017-06-20 08:00] VITALS: BP 131/66
[2017-06-20] MEDS ORDERED: metFORMIN 500mg tab ORAL SCH (09:00)
[2017-06-20] MEDS ORDERED: Metoprolol Succinate XL 25mg tab ORAL SCH (09:00)
[2017-06-20] MEDS ORDERED: Doxazosin 1mg Tab ORAL SCH (09:00)
[2017-06-20] MEDS ORDERED: Xarelto 10mg tab ORAL SCH (09:00)
[2017-06-20] MEDS ORDERED: Aspirin EC 81mg tab ORAL SCH (09:00)
[2017-06-20] MEDS ORDERED: Losartan 25mg tab ORAL SCH (09:00)
--- NOTE | 2017-06-20 09:36 | General Progress Note ---
Assessment/Plan Status: stable Assessment/Plan 1. Chest pain possibility of acute coronary syndrome cannot be excluded in this patient with moderate to high risk pretest probability. 2. Exertional shortness of breath. 3. Anemia. 4. Diabetes type 2. 5. Malnourishment. 6. Abnormal LFTs. 7. Gastrointestinal and deep vein thrombosis prophylaxis. 8. Afib: New reported incidence Start Lovenox ok to empirical antibiotic regiment Cardiology Dr Javier is consulted possible dc tomorrow Comment: patient seen and examined on Jun 19. this note doesn't reflect time of encounter. DC pending to ID clearance Subjective Allergies: Coded Allergies: No Known Allergies (Unverified , 06/16/17) Objective Last 24 Hour Vital Signs Date Time Temp Pulse Resp B/P (MAP) Pulse Ox O2 Delivery O2 Flow Rate FiO2 06/20/17 08:40 87 131/66 06/20/17 08:09 87 18 Room Air 21 06/20/17 08:00 98.2 91 19 131/66 95 Room Air 06/20/17 07:55 Room Air 21 06/20/17 07:55 93 Room Air 21 06/20/17 04:00 97.3 88 18 133/70 91 Room Air 06/20/17 00:00 98.3 98 18 107/58 96 Room Air 98 06/19/17 22:40 98.1 101 20 134/64 94 Room Air 06/19/17 21:40 147/86 06/19/17 20:08 97.0 88 20 147/86 93 Room Air 06/19/17 19:47 98 Room Air 21 06/19/17 19:47 Room Air 21 06/19/17 15:43 96.9 69 20 119/64 95 06/19/17 11:40 96.8 83 20 122/66 95 06/19/17 09:46 Room Air 21 06/19/17 09:46 97 Room Air 21 Laboratory Tests 06/20/17 04:45: White Blood Count 4.5L, Red Blood Count 4.42L, Hemoglobin 14.2, Hematocrit 42.3 , Mean Corpuscular Volume 96, Mean Corpuscular Hemoglobin 32.0H, Mean Corpuscular Hemoglobin Concent 33.5, Red Cell Distribution Width 11.3L, Platelet Count 190, Mean Platelet Volume 5.7L, Neutrophils (%) (Auto) 50.8, Lymphocytes (%) (Auto) 31.8, Monocytes (%) (Auto) 14.5H, Eosinophils (%) (Auto) 1.7, Basophils (%) (Auto) 1.2, Sodium Level 139, Potassium Level 4.2, Chloride Level 104, Carbon Dioxide Level 31, Anion Gap 4L, Blood Urea Nitrogen 26H, Creatinine 1.2, Estimat Glomerular Filtration Rate > 60, Glucose Level 209H, Calcium Level 8.6, C-Reactive Protein, Quantitative 4.2H Height (Feet): 5 Height (Inches): 11.00 Weight (Pounds): 302 Matilde Merritt MD Jun 20, 2017 09:36
--- NOTE | 2017-06-20 09:38 | General Progress Note ---
Assessment/Plan Status: stable Assessment/Plan 1. 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 Exertional shortness of breath. resolved 3. Anemia. 4. Diabetes type 2. 5. Malnourishment. 6. Abnormal LFTs. 7. Gastrointestinal and deep vein thrombosis prophylaxis. 8. Afib: New reported incidence Ok to continue current anticoagulation. Lalito and rodrigo called in to pharmacy yesterday DC pending to ID clearance Subjective ROS Limited/Unobtainable: No HEENT: Reports: no symptoms Cardiovascular: Reports: no symptoms Respiratory: Reports: no symptoms Allergies: Coded Allergies: No Known Allergies (Unverified , 06/16/17) Objective Last 24 Hour Vital Signs Date Time Temp Pulse Resp B/P (MAP) Pulse Ox O2 Delivery O2 Flow Rate FiO2 06/20/17 08:40 87 131/66 06/20/17 08:09 87 18 Room Air 21 06/20/17 08:00 98.2 91 19 131/66 95 Room Air 06/20/17 07:55 Room Air 21 06/20/17 07:55 93 Room Air 21 06/20/17 04:00 97.3 88 18 133/70 91 Room Air 06/20/17 00:00 98.3 98 18 107/58 96 Room Air 98 06/19/17 22:40 98.1 101 20 134/64 94 Room Air 06/19/17 21:40 147/86 06/19/17 20:08 97.0 88 20 147/86 93 Room Air 06/19/17 19:47 98 Room Air 21 06/19/17 19:47 Room Air 21 06/19/17 15:43 96.9 69 20 119/64 95 06/19/17 11:40 96.8 83 20 122/66 95 06/19/17 09:46 Room Air 21 06/19/17 09:46 97 Room Air 21 Laboratory Tests 06/20/17 04:45: White Blood Count 4.5L, Red Blood Count 4.42L, Hemoglobin 14.2, Hematocrit 42.3 , Mean Corpuscular Volume 96, Mean Corpuscular Hemoglobin 32.0H, Mean Corpuscular Hemoglobin Concent 33.5, Red Cell Distribution Width 11.3L, Platelet Count 190, Mean Platelet Volume 5.7L, Neutrophils (%) (Auto) 50.8, Lymphocytes (%) (Auto) 31.8, Monocytes (%) (Auto) 14.5H, Eosinophils (%) (Auto) 1.7, Basophils (%) (Auto) 1.2, Sodium Level 139, Potassium Level 4.2, Chloride Level 104, Carbon Dioxide Level 31, Anion Gap 4L, Blood Urea Nitrogen 26H, Creatinine 1.2, Estimat Glomerular Filtration Rate > 60, Glucose Level 209H, Calcium Level 8.6, C-Reactive Protein, Quantitative 4.2H Height (Feet): 5 Height (Inches): 11.00 Weight (Pounds): 302 General Appearance: no apparent distress EENT: PERRL/EOMI Neck: supple Cardiovascular: normal rate Respiratory/Chest: lungs clear Abdomen: soft Extremities: non-tender Neurologic: director of culture II-XII grossly normal Matilde Merritt MD Jun 20, 2017 09:38
--- NOTE | 2017-06-20 09:52 | Infectious Diseases Prog Note ---
Assessment/Plan Assessment/Plan ASSESSMENT: The patient is a 66-year-old male with +ve blood culture: streptococcus Grp B ? source is unknown, transient bacteremia vs contaminant repeat BlCx: NGTD TTE : neg for SBE Shortness of breath due to congestive heart failure. Febrile. Normal white blood cells Diabetes. Hypertension. Hyperlipidemia PLAN: cont on Ampicillin IV d# 2 , upon DC will change to Amoxilxllin x 10 d and repeat blood Cx in 2 wks / SP IV vancomycin d# 4 Monitor CBC Monitor BMP. Monitor repeat blood cultures. Monitor vital signs Cardiology following ok to DC w oral AB Rx , care was Dw family and RN Subjective Constitutional: Denies: no symptoms, fever, chills, fatigue, anorexia, drenching sweats, other Allergies: Coded Allergies: No Known Allergies (Unverified , 06/16/17) Objective Vital Signs Last 24 Hour Vital Signs Date Time Temp Pulse Resp B/P (MAP) Pulse Ox O2 Delivery O2 Flow Rate FiO2 06/20/17 08:40 87 131/66 06/20/17 08:09 87 18 Room Air 21 06/20/17 08:00 98.2 91 19 131/66 95 Room Air 06/20/17 07:55 Room Air 21 06/20/17 07:55 93 Room Air 21 06/20/17 04:00 97.3 88 18 133/70 91 Room Air 06/20/17 00:00 98.3 98 18 107/58 96 Room Air 98 06/19/17 22:40 98.1 101 20 134/64 94 Room Air 06/19/17 21:40 147/86 06/19/17 20:08 97.0 88 20 147/86 93 Room Air 06/19/17 19:47 98 Room Air 21 06/19/17 19:47 Room Air 21 06/19/17 15:43 96.9 69 20 119/64 95 06/19/17 11:40 96.8 83 20 122/66 95 Height (Feet): 5 Height (Inches): 11.00 Weight (Pounds): 302 HEENT: mucous membranes moist Respiratory/Chest: normal breath sounds Cardiovascular: regularly irregular Abdomen: soft, non tender Microbiology Date/Time Source Procedure Growth Status 06/17/17 19:10 Blood Blood Culture - Preliminary NO GROWTH AFTER 48 HOURS Resulted 06/17/17 19:00 Blood Blood Culture - Preliminary NO GROWTH AFTER 48 HOURS Resulted Laboratory Tests Test 06/20/17 04:45 White Blood Count 4.5 K/UL (4.8-10.8) L Red Blood Count 4.42 M/UL (4.70-6.10) L Hemoglobin 14.2 G/DL (14.2-18.0) Hematocrit 42.3 % (42.0-52.0) Mean Corpuscular Volume 96 FL (80-99) Mean Corpuscular Hemoglobin 32.0 PG (27.0-31.0) H Mean Corpuscular Hemoglobin Concent 33.5 G/DL (32.0-36.0) Red Cell Distribution Width 11.3 % (11.6-14.8) L Platelet Count 190 K/UL (150-450) Mean Platelet Volume 5.7 FL (6.5-10.1) L Neutrophils (%) (Auto) 50.8 % (45.0-75.0) Lymphocytes (%) (Auto) 31.8 % (20.0-45.0) Monocytes (%) (Auto) 14.5 % (1.0-10.0) H Eosinophils (%) (Auto) 1.7 % (0.0-3.0) Basophils (%) (Auto) 1.2 % (0.0-2.0) Sodium Level 139 MMOL/L (136-145) Potassium Level 4.2 MMOL/L (3.5-5.1) Chloride Level 104 MMOL/L (98-107) Carbon Dioxide Level 31 MMOL/L (21-32) Anion Gap 4 mmol/L (5-15) L Blood Urea Nitrogen 26 mg/dL (7-18) H Creatinine 1.2 MG/DL (0.55-1.30) Estimat Glomerular Filtration Rate > 60 mL/min (>60) Glucose Level 209 MG/DL (74-106) H Calcium Level 8.6 MG/DL (8.5-10.1) C-Reactive Protein, Quantitative 4.2 mg/dL (0.00-0.90) H Current Medications Medications (Trade) Dose Ordered Sig/Jose Route PRN Reason Start Time Stop Time Status Last Admin Dose Admin Acetaminophen (Tylenol) 650 mg Q6H PRN ORAL Mild Pain/Temp > 100.5 06/20/17 03:15 07/17/17 03:14 Albuterol/ Ipratropium (Albuterol/ Ipratropium) 3 ml Q4H PRN HHN Shortness of Breath 06/19/17 23:15 06/22/17 03:14 Ampicillin 1 gm/ Sodium Chloride 55 ml @ 110 mls/hr Q6H IVPB 06/20/17 04:00 06/26/17 15:59 06/20/17 09:28 Aspirin (Ecotrin) 81 mg DAILY ORAL 06/20/17 09:00 07/17/17 08:59 06/20/17 08:40 Atorvastatin Calcium (Lipitor) 10 mg BEDTIME ORAL 06/20/17 21:00 07/17/17 20:59 Dextrose (Dextrose 50%) STAT PRN IV Hypoglycemia 06/20/17 03:15 07/17/17 03:14 Doxazosin Mesylate (Cardura) 2 mg DAILY ORAL 06/20/17 09:00 07/17/17 08:59 06/20/17 08:40 Furosemide (Lasix) 20 mg DAILY ORAL 06/20/17 09:00 07/19/17 08:59 06/20/17 08:40 Insulin Aspart (NovoLOG) BEFORE MEALS AND HS SUBQ 06/20/17 06:30 07/17/17 06:29 06/20/17 07:10 Insulin Aspart (NovoLOG) 12 units TIAC SUBQ 06/20/17 06:30 07/17/17 06:29 06/20/17 07:08 Insulin Detemir (Levemir) 40 units BEDTIME SUBQ 06/20/17 21:00 07/17/17 20:59 Losartan Potassium (Cozaar) 25 mg Q12HR ORAL 06/20/17 09:00 07/17/17 20:59 Metformin HCl (Glucophage) 500 mg TWICE A DAY ORAL 06/20/17 09:00 07/17/17 08:59 06/20/17 08:39 Metoprolol Succinate (Toprol XL) 25 mg DAILY ORAL 06/20/17 09:00 07/18/17 08:59 06/20/17 08:40 Ondansetron HCl (Zofran) 4 mg Q6H PRN IVP Nausea & Vomiting 06/20/17 03:15 07/17/17 03:14 Rivaroxaban (Xarelto) 20 mg DAILY ORAL 06/20/17 09:00 07/18/17 13:59 06/20/17 08:40 LUZ MARINA BRISENO M.D. Jun 20, 2017 09:51
[2017-06-20] MEDS ORDERED: AMOXICILLIN500 MG ORAL (10:52)
[2017-06-20 11:20] VITALS: BP 136/70
[2017-06-20] MEDS ORDERED: Tubing IV Secondary IV ONE (12:49)
[2017-06-20] MEDS ORDERED: Levemir Flexpen SUBQ SCH (21:00)
--- NOTE | 2017-06-21 11:03 | Cardiology Report ---
APPROVED REPORT EKG Measurement Heart [id number] Sinus tachycardia Otherwise normal ECG
--- NOTE | 2017-06-21 17:52 | Discharge Summary ---
Discharge Summary Hospital Course Date of Admission Jun 17, 2017 at 00:20 Date of Discharge Jun 20, 2017 at 12:50 Admitting Diagnosis SHORTNESS OF BREATH , CHEST PAIN CARMEN Foster is a 66 year old male who was admitted on Jun 17, 2017 at 00:20 for Shortness Of Breath/Chest Pain Hospital Course [id number] Discharge Discharge Disposition Patient was discharged to Home () Discharge Diagnoses: Nandini Ba NP Jun 21, 2017 17:52
--- NOTE | 2017-06-22 01:00 | Discharge Summary 2 SIG ---
DATE OF ADMISSION: 06/17/2017 DATE OF DISCHARGE: 06/20/2017 CONSULTANTS: 1. Brandon Powers M.D. 2. Silvio Javier M.D. BRIEF HOSPITAL COURSE: The patient is a 66-year-old [place] male, who came in complaining of shortness of breath for half an hour before coming to ER. He had chest pain reported to the precordial area and radiates to the back. He has history of hypertension and diabetes mellitus. On evaluation at ED, workup showed no leukocytosis. Initial troponin was negative. EKG was in sinus tachycardia with no acute ischemic changes. BNP was 243. Chest x-ray done showed mild cardiomegaly with bilateral effusion. He was given aspirin and was started on antibiotics. He was admitted to telemetry for congestive heart failure exacerbation and chest pain. Dr. Javier was consulted. Chest pain was pleuritic and associated with coughing. Risk factors for coronary artery disease includes hypertension and diabetes mellitus. Cardiac troponins were monitored. He has atrial fibrillation, most likely permanent with rate controlled. He has been on metoprolol. CHADS-VSC score 3 due to age, diabetes, and hypertension. He required to be started on anticoagulant therapy. He was initially placed on Lovenox. Creatinine was 1.2. He was given Xarelto 20 mg once daily. There was slight elevation of BNP, most likely due to atrial fibrillation. Echocardiogram showed left ventricular ejection fraction of 55% to 60%, diastolic data not compatible with elevated intracardiac filling pressures. He was given furosemide 20 mg daily for lower extremity edema. A 12-lead EKG did not show any ischemic changes and chest pain not ischemic in origin. He had blood culture growing Gram-positive cocci and had been started on IV vancomycin. Infectious Disease specialist was consulted. Blood culture with Streptococcus group B, source unknown, possible transient bacteremia or contaminant. Repeat surveillance blood culture did not isolate any growth and echocardiogram was negative for SBE. He was given initially vancomycin and was switched to ampicillin upon discharge. He was discharged to continue amoxicillin 500 mg for 10 more days and to continue with Xarelto 20 mg daily. FINAL DIAGNOSES: 1. Chest pain, secondary to atypical musculoskeletal type. 2. Exertional shortness of breath, resolved. 3. Anemia. 4. Diabetes type 2. 5. Malnourishment. 6. Abnormal liver function tests. 7. Atrial fibrillation, currently on anticoagulation. 8. Bacteremia with Streptococcus group B. DISPOSITION: The patient was discharged home. DISCHARGE MEDICATIONS: Refer to medication list. DISCHARGE INSTRUCTIONS: Follow up with PMD in a week. Matilde Merritt M.D. I have been assigned to dictate discharge summary on this account and I was not involved in the patient's management. Nandini Ba N.P. DR: YELITZA JOB#: [id number] CC: JOHN
== END 2017-06-20 12:50 | disposition home or self-care (01) | DRG 203 ==
LOC: EMR 20:59 → 2E 06-17 00:20 → EDBEDREQ 06-17 01:03 → 3E 06-19 22:54
DX: R07.89 Other chest pain (principal); E46 Unspecified protein-calorie malnutrition; R78.81 Bacteremia; Z68.41 Body mass index [BMI] 40.0-44.9, adult; I50.9 Heart failure, unspecified; I48.2 Chronic atrial fibrillation; E11.9 Type 2 diabetes mellitus without complications; I11.0 Hypertensive heart disease with heart failure; D64.9 Anemia, unspecified; E78.5 Hyperlipidemia, unspecified; R94.5 Abnormal results of liver function studies; E66.01 Morbid (severe) obesity due to excess calories; Z79.4 Long term (current) use of insulin
CPT/HCPCS: 36415; 71010; 80048; 80053; 80202; 81003; 82550; 82553; 82962; 83880; 84484; 85025; 85651; 86140; 86710; 87040; 87181; 93005; 93306; 94640; 94664; 94760; 99285; J1815; J2405; S5561

== ENCOUNTER 2017-07-11 08:50 | Outpatient (CLI) | payer OTHER ==
[~2017-07-11 08:50] MED LIST: AMOXICILLIN500 MG ORAL; ASPIRIN-LOW81 MG ORAL; ATORVASTATIN CA10 MG ORAL; DOXAZOSIN MESYLA2 MG ORAL; FUROSEMIDE20 M1 ORAL; HUMALOG100 UNIT/4 SUBQ; LANTUS SOL100 UNIT/1 SUBQ; LOSARTAN POTASS50 MG ORAL; METFORMIN HCL500 M1 ORAL; METOPROLOL SUCC50 MG ORAL; NORVASC2.5 MG ORAL; XARELTO10 MG ORAL
== END 2017-07-11 10:50 | disposition home or self-care (01) ==
LOC: LAB 08:50
DX: R78.81 Bacteremia (principal)
CPT/HCPCS: 36415; 87040